=== PATIENT | female | born 1980 | race Caucasian/White ===

== ENCOUNTER 2019-01-27 13:41 | Emergency (ER) | payer OTHER ==
[~2019-01-27] VITALS: Ht 167.6 cm; Wt 76.7 kg
[~2019-01-27 13:41] MED LIST: PRENATAL CAPLE1 EACH
== END 2019-01-27 17:43 | disposition home or self-care (01) ==
LOC: ER 13:41
DX: B08.4 Enteroviral vesicular stomatitis with exanthem (principal)